=== PATIENT | female | born 1995 | race Caucasian/White ===

== ENCOUNTER 2016-10-23 10:41 | Emergency (ER) | payer OTHER ==
[~2016-10-23] VITALS: Ht 177.8 cm; Wt 75.0 kg
[2016-10-23 10:46] VITALS: Ht 177.8 cm; Wt 75.0 kg
[2016-10-23] MEDS ORDERED: ACETAMINOPHEN 500 MG TAB PO STA (10:55)
[2016-10-23] MEDS ORDERED: KETOROLAC TROMETHAMINE 30 MG/ML VIAL IV STA (10:55)
[2016-10-23] MEDS ORDERED: ONDANSETRON INJ 2 MG/ML 2 ML VIAL IV STA (10:55)
[2016-10-23] MEDS ORDERED: SODIUM CHLORIDE 0.9% 1000ML 1,000 ML IV STA ×2 (10:55→12:17)
--- NOTE | 2016-10-23 11:08 | EMERGENCY ROOM VISIT NOTE ---
History Report prepared by Chelsea: Yuridia Luevano Under the Supervision of: Kelley GamezO. First contact with patient: 10:49 Chief Complaint: FEVER Stated Complaint: FEVER, HEAD PRESSURE, DIARRHEA, VOMITING History of Present Illness The patient is a 20 year old female who presents to the Emergency Room with complaints of a persistent illness that began Saturday. She currently rates her discomfort as a 3/10 in severity. The patient states that she recently traveled to [facility] for spring. She states that she came back Saturday and began feeling ill. The patient states that she ate the food and drank the water. She states that she started with head pressure and tried taking Sudafed and aspirin without relief of her symptoms. The patient additionally associates vomiting, diarrhea, nausea, body aches, fever, and cough. She denies any rash, swelling to her lower extremities, melena, or hematochezia. The patient notes a decrease in urination, but states that she has been keeping up with her fluid intake. She states that she has taken Imodium without relief. The patient denies any recent antibiotic use. She denies anyone else from her trip getting sick. The patient denies any alcohol or tobacco use. She denies any active medical problems or previous surgeries. Source of History: patient Onset: Saturday Position: other (global) Symptom Intensity: 3/10 Quality: other (illness) Timing: other (persistent) Associated Symptoms: + diarrhea, + fevers, + headache, + nausea, + urinary symptoms (decreased urinatino), + vomiting, No hematochezia, No melena, No rash Review of Systems See HPI for pertinent positives & negatives. A total of 10 systems reviewed and were otherwise negative. Past Medical & Surgical Medical Problems: (1) No chronic problems Surgical Problems: (1) No pertinent past surgical history Family History Diabetes mellitus Heart disease Hypertension Social History Smoking Status: Never Smoker Smokeless Tobacco Use: No Alcohol Use: occasionally Marital Status: single Housing Status: lives with roommate Occupation Status: [employer] Current/Historical Medications Scheduled Ciprofloxacin Hcl (Cipro), 500 MG PO BID Ondasetron Odt (Zofran Odt), 4 MG SL Q6H Allergies Coded Allergies: No Known Allergies (Unverified , 10/23/16) Physical Exam Vital Signs Date Time Temp Pulse Resp B/P Pulse Ox O2 Delivery O2 Flow Rate FiO2 10/23/16 12:24 37.3 87 13 126/76 97 Room Air 10/23/16 12:13 88 10/23/16 10:46 38.6 122 20 112/68 98 Room Air Physical Exam GENERAL: Patient is awake, alert, and in no acute distress. Patient is resting comfortably and showing no signs of anxiety EYES: The conjunctivae are clear. The pupils are round and reactive. EARS, NOSE, MOUTH AND THROAT: Mucous membranes are dry. The nose is without any evidence of any deformity. Mucous membranes are moist tongue is midline NECK: The neck is nontender and supple. RESPIRATORY: Normal respiratory effort is noted there is no evidence of wheezing rhonchi or rales CARDIOVASCULAR: Regular rate and rhythm noted there no murmurs rubs or gallops normal S1 normal S2 GASTROINTESTINAL: The abdomen is soft. Bowel sounds are present in all quadrants. Abdomen is nontender MUSCULOSKELETAL/EXTREMITIES: There is no evidence of gross deformity full range of motion is noted in the hips and shoulders SKIN: There is no obvious evidence of any rash. There are no petechiae, pallor or cyanosis noted. NEUROLOGIC: Patient is awake alert and oriented x3 strength is symmetric patellar reflexes are 2+ bilaterally Medical Decision & Procedures ER Provider Diagnostic Interpretation: X-ray results as stated below per interpretation by me and the radiologist. PA CHEST RADIOGRAPH AND UPRIGHT AND SUPINE AP RADIOGRAPHS OF THE ABDOMEN CLINICAL HISTORY: Abdominal pain, fever and diarrhea. COMPARISON STUDY: No previous studies for comparison. FINDINGS: Lung volumes are normal. Lungs are clear. There is no pneumothorax or pleural effusion. Pulmonary vascularity is normal. Cardiac size is normal. Mediastinal contours are normal. There is no free air. The bowel gas pattern is normal. IMPRESSION: 1. No free air or evidence of bowel obstruction. 2. No acute cardiopulmonary findings. Electronically signed by: Neto Anton M.D. 10/23/2016 12:00 PM Dictated Date/Time: 10/23/2016 12:00 PM Laboratory Results 10/23/16 10:58 Red Blood Count 4.92, Mean Corpuscular Volume 84.3, Mean Corpuscular Hemoglobin 29.1, Mean Corpuscular Hemoglobin Concent 34.5, Mean Platelet Volume 9.1, Neutrophils (%) (Auto) 89.1, Lymphocytes (%) (Auto) 5.9, Monocytes (%) (Auto) 4.7, Eosinophils (%) (Auto) 0.0, Basophils (%) (Auto) 0.1, Neutrophils # (Auto) 18.05, Lymphocytes # (Auto) 1.20, Monocytes # (Auto) 0.95, Eosinophils # (Auto) 0.00, Basophils # (Auto) 0.02 10/23/16 10:58 Test 10/23/16 10:55 10/23/16 10:58 10/23/16 13:10 White Blood Count 20.26 K/uL (4.8-10.8) Red Blood Count 4.92 M/uL (4.2-5.4) Hemoglobin 14.3 g/dL (12.0-16.0) Hematocrit 41.5 % (37-47) Mean Corpuscular Volume 84.3 fL (80-100) Mean Corpuscular Hemoglobin 29.1 pg (25-34) Mean Corpuscular Hemoglobin Concent 34.5 g/dl (32-36) Platelet Count 225 K/uL (130-400) Mean Platelet Volume 9.1 fL (7.4-10.4) Neutrophils (%) (Auto) 89.1 % Lymphocytes (%) (Auto) 5.9 % Monocytes (%) (Auto) 4.7 % Eosinophils (%) (Auto) 0.0 % Basophils (%) (Auto) 0.1 % Neutrophils # (Auto) 18.05 K/uL (1.4-6.5) Lymphocytes # (Auto) 1.20 K/uL (1.2-3.4) Monocytes # (Auto) 0.95 K/uL (0.11-0.59) Eosinophils # (Auto) 0.00 K/uL (0-0.5) Basophils # (Auto) 0.02 K/uL (0-0.2) RDW Standard Deviation 41.8 fL (36.4-46.3) RDW Coefficient of Variation 13.6 % (11.5-14.5) Immature Granulocyte % (Auto) 0.2 % Immature Granulocyte # (Auto) 0.04 K/uL (0.00-0.02) Erythrocyte Sedimentation Rate 38 mm/hr (0-21) Anion Gap 8.0 mmol/L (3-11) Est Creatinine Clear Calc Drug Dose 81.5 ml/min Estimated GFR () 75.9 Estimated GFR (Non- 65.5 BUN/Creatinine Ratio 12.5 (10-20) Calcium Level 8.9 mg/dl (8.5-10.1) Magnesium Level 2.2 mg/dl (1.8-2.4) Total Bilirubin 0.4 mg/dl (0.2-1) Direct Bilirubin < 0.1 mg/dl (0-0.2) Aspartate Amino Transf (AST/SGOT) 23 U/L (15-37) Alanine Aminotransferase (ALT/SGPT) 30 U/L (12-78) Alkaline Phosphatase 53 U/L (45-117) Total Creatine Kinase 39 U/L (26-192) Creatine Kinase MB < 0.5 ng/ml (0.5-3.6) Creatine Kinase MB Ratio (0-3.0) Troponin I < 0.015 ng/ml (0-0.045) Total Protein 8.1 gm/dl (6.4-8.2) Albumin 3.7 gm/dl (3.4-5.0) Lipase 73 U/L (73-393) Human Chorionic Gonadotropin, Qual NEG (NEG) Urine Color DK YELLOW Urine Appearance CLOUDY (CLEAR) Urine pH 5.5 (4.5-7.5) Urine Specific [place] 1.038 (1.000-1.030) Urine Protein 2+ (NEG) Urine Glucose (UA) NEG (NEG) Urine Ketones NEG (NEG) Urine Occult Blood NEG (NEG) Urine Nitrite NEG (NEG) Urine Bilirubin NEG (NEG) Urine Urobilinogen NEG (NEG) Urine Leukocyte Esterase NEG (NEG) Date/Time Source Procedure Growth Status 10/23/16 10:55 Stool C.difficile Toxin B Gene (PCR) - Final No C. difficile toxin B gene detected Complete Laboratory results per my review. Medications Administered Medications (Trade) Dose Ordered Sig/Eliane Route Start Time Stop Time Status Last Admin Dose Admin Acetaminophen (Tylenol Tab) 1,000 mg NOW STAT PO 10/23/16 10:55 10/23/16 10:57 DC 10/23/16 11:11 1,000 MG Ketorolac Tromethamine 30 mg 30 mg NOW STAT IV 10/23/16 10:55 10/23/16 10:57 DC 10/23/16 11:11 30 MG Sodium Chloride (Nss 1000ml) 1,000 ml @ 999 mls/hr Q1H1M STAT IV 10/23/16 10:55 10/23/16 11:55 DC 10/23/16 11:12 999 MLS/HR Ondansetron HCl 4 mg 4 mg NOW STAT IV 10/23/16 10:55 10/23/16 10:57 DC 10/23/16 11:11 4 MG Sodium Chloride (Nss 1000ml) 1,000 ml @ 999 mls/hr Q1H1M STAT IV 10/23/16 12:17 10/23/16 13:17 DC 10/23/16 12:23 999 MLS/HR Ciprofloxacin (Cipro Tab) 500 mg NOW STAT PO 10/23/16 12:33 10/23/16 12:34 DC 10/23/16 13:01 500 MG ECG Rate (beats per minute): 84 Rhythm: normal sinus Findings: ST depression (inferior and lateral), T-wave inversion, other (No PVCs) Comparison ECG Date: no prior available ED Course 1054: The patient was evaluated in room B10. A complete history and physical examination were performed. 1055: Ordered Zofran 4 mg IV, Sodium Chloride 1000 ml @ 999 mls/hr IV, Toradol Inj 30 mg IV, Tylenol Tab 1000 mg PO. 1208: The patient is resting comfortably at this time. 1217: Ordered Sodium Chloride 1000 ml @ 999 mls//hr IV. 1233: Ordered Cipro Tab 500 mg PO. 1245: I reevaluated the patient and she is feeling better. I discussed all the exam findings with her and I discussed the treatment plan. She verbalized complete understanding and agreement. She will be ready to go home shortly. Medical Decision Differential diagnosis: Etiologies such as gastroenteritis, food borne illness, infections, appendicitis , diverticulitis, inflammatory bowel disease, obstruction, GI bleed, biliary pathology, as well as others were entertained. Nursing notes reviewed. The patient is a 20-year-old female who presented to the emergency department for an evaluation of diarrhea. The patient did not have abdominal pain. Her physical exam was not consistent with an acute surgical abdomen. She was treated with IV fluids IV pain medicine and IV antiemetics. She was feeling much better on subsequent reevaluation. The patient did have an elevated white blood cell count. She did not have blood in her diarrhea. Stool studies were sent. They're pending at this time. Because the patient's elevated white blood cell count was concerned this could represent traveler's diarrhea or possibly an early invasive diarrhea. The patient started on Cipro. She was encouraged to rest and avoid any strenuous activity. She was also found have an abnormal EKG which could just be because the patient's age. She was encouraged to have a repeat EKG as well as an echocardiogram and Holter monitor when she follows up with her primary care physician. She was also encouraged to return to the emergency apartment immediately if symptoms change worsen or the need arises. Impression Primary Impression: Traveler's diarrhea Additional Impressions: Dehydration Abnormal EKG Scribe Attestation The scribe's documentation has been prepared under my direction and personally reviewed by me in its entirety. I confirm that the note above accurately reflects all work, treatment, procedures, and medical decision making performed by me. Departure Information Dispostion Home / Self-Care Prescriptions Ondasetron Odt (ZOFRAN ODT) 4 Mg Tab 4 MG SL Q6H for Nausea, #15 TAB Prov: Manny Manning, DO 10/23/16 Ciprofloxacin Hcl (CIPRO) 500 Mg Tab 500 MG PO BID, #6 TAB Prov: Manny Manning, DO 10/23/16 Referrals No Doctor, Assigned (PCP) Forms HOME CARE DOCUMENTATION FORM, IMPORTANT VISIT INFORMATION, School Instructions, Work Instructions Patient Instructions ED Diarrhea Traveler, My [facility] Additional Instructions Follow-up with [facility] this week for reevaluation. I would recommend an echocardiogram ultra monitor and repeat EKG when you are feeling better. Drink plenty of clear liquids as well as electrolyte-containing fluids such as Pedialyte and Gatorade. Continue all medications as prescribed. Continue using Motrin and Tylenol as directed for fever and pain. Return to the emergency department immediately if symptoms change worsen or the need arises. Problem Qualifiers
[2016-10-23 11:09] LABS: BASO % 0.1 %; BASO ABS # 0.02 K/uL (0-0.2); COMPLETE YES; HEMATOCRIT 41.5 % (37-47); IG% 0.2 %; LYMPH % 5.9 %; MEAN CELL VOLUME 84.3 fL (80-100); MEAN CORPUSCULAR HEMOGLOBIN 29.1 pg (25-34); MEAN CORPUSCULAR HGB CONC 34.5 g/dl (32-36); MEAN PLATELET VOLUME 9.1 fL (7.4-10.4); MONO % 4.7 %; NEUT % 89.1 %; PLATELET COUNT 225 K/uL (130-400); RED BLOOD COUNT 4.92 M/uL (4.2-5.4); WHITE BLOOD COUNT 20.26 K/uL (4.8-10.8)
[2016-10-23 11:26] LABS: ALT/SGPT 30 U/L (12-78); AST/SGOT 23 U/L (15-37); BLOOD UREA NITROGEN 15 mg/dl (7-18); BUN/CREATININE RATIO 12.5 (10-20); CALCIUM 8.9 mg/dl (8.5-10.1); CARBON DIOXIDE 27 mmol/L (21-32); CHLORIDE 100 mmol/L (98-107); GLUCOSE 145 mg/dl (70-99); POTASSIUM 3.5 mmol/L (3.5-5.1); SODIUM 135 mmol/L (136-145)
[2016-10-23 11:29] LABS: ALKALINE PHOSPHATASE 53 U/L (45-117)
[2016-10-23 11:50] LABS: PREG INTERNAL NEGATIVE QC NEG CLEAR BACKGROUND; PREG INTERNAL POSITIVE QC POS CONTROL LINE
--- NOTE | 2016-10-23 12:01 | DIAGNOSTIC IMAGING REPORT ---
PA CHEST RADIOGRAPH AND UPRIGHT AND SUPINE AP RADIOGRAPHS OF THE ABDOMEN CLINICAL HISTORY: Abdominal pain, fever and diarrhea. COMPARISON STUDY: No previous studies for comparison. FINDINGS: Lung volumes are normal. Lungs are clear. There is no pneumothorax or pleural effusion. Pulmonary vascularity is normal. Cardiac size is normal. Mediastinal contours are normal. There is no free air. The bowel gas pattern is normal. IMPRESSION: 1. No free air or evidence of bowel obstruction. 2. No acute cardiopulmonary findings. Electronically signed by: Neto Anton M.D. 10/23/2016 12:00 PM Dictated Date/Time: 10/23/2016 12:00 PM
[2016-10-23 12:24] VITALS: TEMP 37.3
[2016-10-23] MEDS ORDERED: CIPROFLOXACIN 500 MG TAB PO STA (12:33)
[2016-10-23 12:45] LABS: MAGNESIUM 2.2 mg/dl (1.8-2.4)
[2016-10-23] MEDS ORDERED: CIPR-255 PO (13:04)
[2016-10-23] MEDS ORDERED: ONDA4TAB10 SL (13:04)
[2016-10-23 13:34] LABS: URINE APPEARANCE CLOUDY (CLEAR); URINE COLOR DK YELLOW; URINE EPITHELIAL CELL AUTO >30 /lpf (0-5); URINE NITRITE NEG (NEG); URINE PH 5.5 (4.5-7.5); URINE SPECIFIC GRAVITY 1.038 (1.000-1.030); UROBILINOGEN NEG (NEG)
[2016-10-23 13:42] LABS: MANUAL MICROSCOPIC REQUIRED? NO; REVIEW REQ? YES; URINE BILIRUBIN NEG (NEG)
[2016-10-23 14:05] LABS: URINE MUCUS PRESENT (NONE PRSENT)
[2016-10-23 14:11] VITALS: BP 124/72; PULSE 79; O2SAT 100
== END 2016-10-23 14:21 | disposition home or self-care (01) ==
LOC: C.EDB 10:43
DX: R19.7 Diarrhea, unspecified (principal); E86.0 Dehydration; R94.31 Abnormal electrocardiogram [ECG] [EKG]; Z83.3 Family history of diabetes mellitus; Z82.49 Family history of ischemic heart disease and other diseases of the circulatory system